=== PATIENT | female | born 1940 | race Caucasian/White ===

== ENCOUNTER 2016-12-20 09:07 | Outpatient (CLI) | payer MEDICARE, BC ==
[2016-12-20 12:45] LABS: Hemoglobin A1c 8.4 % (4.0-6.0)
== END 2016-12-20 09:08 ==
LOC: NAVSJIPCSP 09:07
PROVIDERS: ATTEND Internal Medicine
DX: E78.5 Hyperlipidemia, unspecified (principal); E11.9 Type 2 diabetes mellitus without complications; Z79.899 Other long term (current) drug therapy
CPT/HCPCS: 36415; 80061; 83036

== ENCOUNTER 2017-04-18 09:08 | Outpatient (CLI) | payer MEDICARE, BC ==
[2017-04-18 12:38] LABS: Hemoglobin A1c 8.6 % (4.0-6.0)
[2017-04-18 13:11] LABS: Cardiac Risk 4.5 (Less than 4.5)
== END 2017-04-18 09:09 | disposition home or self-care (01) ==
LOC: NAVSJIPCSP 09:08
PROVIDERS: ATTEND Internal Medicine
DX: E78.5 Hyperlipidemia, unspecified (principal); E11.9 Type 2 diabetes mellitus without complications; Z79.899 Other long term (current) drug therapy
CPT/HCPCS: 36415; 80061; 83036

== ENCOUNTER 2017-07-19 09:31 | Outpatient (CLI) | payer MEDICARE, BC ==
[2017-07-19 13:08] LABS: Hemoglobin A1c 7.3 % (4.0-6.0)
== END 2017-07-19 09:32 | disposition home or self-care (01) ==
LOC: NAVSJIPCSP 09:31
PROVIDERS: ATTEND Internal Medicine
DX: E78.5 Hyperlipidemia, unspecified (principal); E11.9 Type 2 diabetes mellitus without complications; Z79.899 Other long term (current) drug therapy
CPT/HCPCS: 36415; 80061; 83036